=== PATIENT | female | born 1935 | race Caucasian/White ===

== ENCOUNTER 2017-03-31 06:55 | Inpatient (IN) | payer MEDICARE, BC ==
[2017-03-20 12:59] LABS: BASOPHILS 1.1 %; BASOPHILS ABSOLUTE 0.08 10/3/uL (0.0-0.16); EOSINOPHILS 1.9 %; EOSINOPHILS ABSOLUTE 0.14 10/3/uL (0.0-0.53); HEMATOCRIT 38.9 % (36.0-48.0); HEMOGLOBIN 12.9 g/dL (12.0-16.0); IMMATURE GRANULOCYTES 0.3 %; IMMATURE GRANULOCYTES ABSOLUTE 0.02 10/3/uL (0.0-0.11); LYMPHOCYTES 19.6 %; LYMPHOCYTES ABSOLUTE 1.45 10/3/uL (0.67-4.30); MEAN CORPUS HGB CONC 33.2 g/dL (32.0-36.0); MEAN CORPUSCULAR HEMOGLOB 31.9 pg (26.0-34.0); MEAN PLATELET VOLUME 9.9 fL (9.2-13.0); MONOCYTES 12.6 %; MONOCYTES ABSOLUTE 0.93 10/3/uL (0.21-1.20); NEUTROPHILS 64.5 %; NEUTROPHILS ABSOLUTE 4.79 10/3/uL (2.02-8.40); PLATELET COUNT 367 10/3/uL (150-400); RBC DISTRIBUTION WIDTH 14.7 % (12.0-16.0); RED CELL COUNT 4.04 10/6/uL (4.0-5.6); WHITE BLOOD CELLS 7.4 10/3/uL (4.5-10.5)
[2017-03-20 13:01] LABS: MANUAL DIFF NO %; MEAN CORPUSCULAR VOLUME 96.3 fL (80-100)
[2017-03-20 13:05] LABS: INTERNATIONAL NORMAL RATI 2.3 UNITS (-); PROTIME (NOT ORD) 25.3 SEC (12.0-14.5)
[2017-03-20 13:15] LABS: ALKALINE PHOSPHATASE 88 U/L (45-117); BUN (BLOOD UREA NITROGEN) 21 MG/DL (6-23); CALCIUM, SERUM 10.3 MG/DL (8.5-10.4); CHLORIDE, SERUM 101 MMOL/L (96-112); CO2 (CARBON DIOXIDE) 29 MMOL/L (24-34); CREATININE 0.76 MG/DL (0.55-1.02); GFR AFRICAN AMERICAN 85 ML/MIN (>=60); GFR NON AFRICAN AMERICAN 74 ML/MIN (>=60); GLOBULIN 4.1 G/DL (2.5-4.1); GLUCOSE, SERUM 97 MG/DL (60-99); POTASSIUM, SERUM 4.2 MMOL/L (3.5-5.3); SGOT(AST) 19 U/L (5-40); SGPT(ALT) 16 U/L (5-65); SODIUM, SERUM 138 MMOL/L (135-148); TOTAL BILIRUBIN 0.5 MG/DL (0-1.2); TOTAL PROTEIN 8.1 G/DL (6.0-8.5)
[2017-03-20 13:16] LABS: B NATRIURETIC PEPTIDE (BNP) 347.5 PG/ML (< 100.0)
[2017-03-20 13:20] LABS: ASCORBIC ACID (UR NOT ORDER) NEG (NEG); BILIRUBIN, URINE NEGATIVE (NEG); KETONE, URINE NEGATIVE (NEG); LEUKOCYTE ESTERASE(NOT OR NEG (NEG); WBC (NOT ORDERED) (RFLEX) < 1 (0-5)
[2017-03-20 22:04] LABS: GLYCOHEMOGLOBIN (HbA1c) 6.2 % (4.7-6.1)
--- NOTE | ~2017-03-31 | OP ---
Record Of Operation [facility] [address] [place]. [address] NAME: SHAMIKA GARCIA : 35 STATUS : DIS IN PAT#: [id number] AGE: 81 ADM/REG DATE : 03/31/17 MR#: [id number] REPORT SERV DATE: 04/03/17 DICTATED BY: BRAYDEN INFANTE DATE: 04/02/17 REPORT STATUS : Draft TRANSCRIBED BY: MODL DATE: 04/02/17 DATE OF PROCEDURE: 03/31/2017 PREOPERATIVE DIAGNOSIS: Critical aortic stenosis. POSTOPERATIVE DIAGNOSIS: Critical aortic stenosis. PROCEDURE: Transcatheter aortic valve implantation with a #26 Bucky 3 pericardial tissue valve by Rich. SURGEON: Brayden Infante M.D. ASSISTING SURGEON: Sixto Neely M.D. CARDIOLOGISTS: Kevan Palomino M.D. and Nav Badillo M.D. COMPLICATIONS: None. ANESTHESIA: Monitored anesthetic care. CONDITION: Stable to ICU. PROCEDURE IN DETAIL: After informed consent was obtained from the patient and after she had been fully reviewed in the TAVR clinic and deemed an intermediate candidate by two surgeons, she was brought to the operating room and monitored anesthetic care was instituted. She was prepped and draped in normal fashion. Using the Seldinger technique, right femoral artery access was obtained, left femoral artery access was obtained, and left femoral vein access was obtained. A femoral pacing wire was placed up the left femoral vein into the right ventricle and good threshold numbers were obtained for pacing. A flush catheter was brought over a wire up into the ascending aorta by the left femoral artery. Multiple projections were performed to find the correct angle of deployment. Dr. Bear performed transthoracic echocardiogram. The right femoral artery access then had two Perclose devices placed and the Rich sheath placed without difficulty. [employer]' hardware supplies sales representative readied the valve on the back table. This was brought to the operative stage. Straight wire access was then performed across the stenotic valve and exchanged out for a flush catheter. Gradients were obtained across the valve. The catheter was then exchanged for an Amplatzer extra-stiff wire that had been preshaped. The Rich S3 26 mm valve was then positioned into the descending aorta using the Commander sheath and the balloon engaged. The device was then threaded across the aortic arch and into the ascending aorta and across the valve. After a good coaxial placement was found, rapid pacing was performed and the valve deployed without difficulty. The sheath device was then pulled down into the descending aorta. Transthoracic echo was performed, which showed no perivalvular leaks. I failed to mention earlier that the patient was systemically heparinized before the Rich sheath was placed. Monitoring catheter was then placed back across the valve and the wire removed. Completion gradients were obtained. All wires and catheters were then removed. The Rich sheath was removed, and femoral arteriography performed after tie-down of the Perclose device which Record Of [facility] [address] [facility] [place]. [address] NAME: SHAMIKA GARCIA : 35 STATUS : DIS IN PAT#: [id number] AGE: 81 ADM/REG DATE : 03/31/17 MR#: [id number] REPORT SERV DATE: 04/03/17 DICTATED BY: BRAYDEN INFANTE DATE: 04/02/17 REPORT STATUS : Draft TRANSCRIBED BY: NYDIA DATE: 04/02/17 showed good flow to the right femoral artery and distally. All sheaths and catheters were then removed under pressure. Overall the patient tolerated the procedure well and was transported to the ICU in stable condition. REGISTRY NUMBERS: Total time of rapid pacing, 23 seconds. Actual time of TAVR deployment, 11:44 a.m. Cardiac output post deployment, 5.0; pre deployment, 3.2. Valve area post deployment was 2.57 cm2. Valve area pre deployment was 0.47 cm2. PREPROCEDURE HEMODYNAMICS: Blood pressure 115/51 with a mean of 74 and heart rate of 90, post deployment 122/48. Blood pressure with a mean of 71 and heart rate of 60. Post implant AV gradient was a mean of 5 and a peak of 6. Pre implant aortic valve gradient with a mean of 46 and a peak of 47. Contrast volume used was 145 mL. Fluoro time 16.9 minutes. ESTIMATED BLOOD LOSS: Less than 50 mL. TOTAL MILLIGRAY: Used was 687. AI INDEX: Equals 26. DEDRICK/MODL Brayden Infante M.D. / [id number] CC: Eugenie Owens M.D. [facility]
--- NOTE | ~2017-03-31 | OP ---
Record Of Operation [facility] [address] [place]. [address] NAME: SHAMIKA GARCIA : 35 STATUS : ADM IN PAT#: [id number] AGE: 81 ADM/REG DATE : 03/31/17 MR#: [id number] REPORT SERV DATE: 04/01/17 DICTATED BY: NAV PRINCE DATE: 03/31/17 REPORT STATUS : Draft TRANSCRIBED BY: MODL DATE: 03/31/17 DATE OF PROCEDURE: 03/31/2017 TRANSCATHETER AORTIC VALVE IMPLANTATION PROCEDURE NOTE REFERRING CARDIOLOGISTS: Dr. Tommy Liriano and Dr. Hernandez. PROCEDURE PERFORMED: 1. Transcatheter aortic valve implantation with a 26 mm Bucky S3 valve from a right transfemoral approach. 2. Temporary transvenous pacemaker placement, left femoral vein to right ventricle. 3. Ascending aortogram. 4. Iliac angiogram. 5. ProGlide closure x2, left femoral artery. 6. Angio-Seal closure, left femoral artery. 7. Transthoracic echocardiography. SURGEONS: 1. Nav Prince M.D. 2. Kevan Palomino M.D. 3. Deon Johnson M.D. 4. Florinda Traore BARBER APPRENTICE: Lanie. ECHOCARDIOGRAPHY: Deon Bear M.D., Ph.D, F.A.C.C.. SPECIMEN: Removed none. ANESTHESIA: MAC and local. ESTIMATED BLOOD LOSS: Less than 50 mL. FLUOROSCOPY TIME: 16.9 minutes, mGy 667. CONTRAST: 145 mL nonionic. COMPLICATIONS: None. PREOPERATIVE DIAGNOSES: 1. Severe aortic stenosis with aortic valve area of 0.7 square cm. 2. 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 3. Intermediate surgical risk with STS score of 4.7% mortality and 24.4% morbidity and mortality. 4. Coronary artery disease with 60% LAD stenosis. 5. Mildly depressed left ventricular systolic function with LVEF of 45%. Record Of Operation [facility] [address] [place]. [address] NAME: SHAMIKA GARCIA : 35 STATUS : ADM IN PAT#: [id number] AGE: 81 ADM/REG DATE : 03/31/17 MR#: [id number] REPORT SERV DATE: 04/01/17 DICTATED BY: NAV PRINCE DATE: 03/31/17 REPORT STATUS : Draft TRANSCRIBED BY: MODL DATE: 03/31/17 6. Mild pulmonary hypertension with PA pressure of 46/17 mmHg. 7. Atrial fibrillation. 8. Status post permanent pacemaker placement, [employer] device. 9. 2+ mitral regurgitation. 10.Diabetes mellitus. 11.Hypertension. 12.Hyperlipidemia. 13.History of liver injury due to cholesterol medications. POSTOPERATIVE DIAGNOSES: 1. Severe aortic stenosis with aortic valve area of 0.7 square cm. 2. 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 3. Intermediate surgical risk with STS score of 4.7% mortality and 24.4% morbidity and mortality. 4. Coronary artery disease with 60% LAD stenosis. 5. Mildly depressed left ventricular systolic function with LVEF of 45%. 6. Mild pulmonary hypertension with PA pressure of 46/17 mmHg. 7. Atrial fibrillation. 8. Status post permanent pacemaker placement, [employer] device. 9. 2+ mitral regurgitation. 10.Diabetes mellitus. 11.Hypertension. 12.Hyperlipidemia. 13.History of liver injury due to cholesterol medications. 14.Trace aortic insufficiency postoperatively. DATA FOR THE VALVE REGISTRY: Time of valve deployment 1144 hours. Rapid pacing time 23 seconds. AI index of 26, pre-procedure cardiac output 3.2 L/minute, aortic valve area of 0.5 square cm. Mean gradient of 46 and peak gradient of 47 mmHg. Postprocedure cardiac output 5.0 L/minute; aortic valve area of 2.6 square cm. Peak mean gradient of 3, peak gradient of 4 mmHg. BACKGROUND: Ms. Garcia is a very pleasant 81-year-old white woman with severe aortic stenosis by echocardiography and cardiac catheterization. She also has 60% LAD stenosis, LVEF of 45%. 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 She had intermediate surgical risk with STS score of 4.7% mortality and 24.4% morbidity and mortality. She was seen by two cardiac surgeons, Dr. Neely and Dr. Miramontes, who felt that she was at least intermediate surgical risk, she also had mild pulmonary hypertension with PA pressure of 46/17, and frailty with poor strength and was offered transcatheter valve implantation. The risks, benefits, and complications were discussed with the patient and her family. She understood them and those of her alternatives and wished to proceed. TECHNIQUE: After informed written consent was obtained from Ms. Garcia she was brought to the hybrid suite on the morning of 03/31/2017 in the fasting state. The time-out was performed and correct patient and operative plan were confirmed. MAC and local anesthesia was provided by the Anesthesia Service. Please see their notes for further details. Local Record Of Operation [facility] [address] [place]. [address] NAME: SHAMIKA GARCIA : 35 STATUS : ADM IN PAT#: [id number] AGE: 81 ADM/REG DATE : 03/31/17 MR#: [id number] REPORT SERV DATE: 04/01/17 DICTATED BY: NAV PRINCE DATE: 03/31/17 REPORT STATUS : Draft TRANSCRIBED BY: NYDIA DATE: 03/31/17 anesthesia was accomplished using 1% lidocaine. Using modified Seldinger technique and a micropuncture set, MicroSheaths were placed in both common femoral arteries. Femoral angiograms were obtained, which demonstrated good sticks in the common femoral arteries, thought suitable for closure, took two attempts on the right. 6-English sheaths were placed additionally in a similar fashion, a 6-English sheath was placed in the left femoral vein. The sheaths were double flushed and left in place. A 5-English balloon tipped pacing catheter was advanced from the LFV to the RV under fluoroscopic guidance. Threshold was checked, which was less than 0.6 milliamps, this was then set aside. Pigtail catheter was advanced over a flexible J-guidewire to the central aorta under fluoroscopic guidance. Guidewire was then withdrawn, catheter double flushed. Pressure recording was obtained. Angles were obtained using ascending aortography. Next, ProGlide closures were placed on the right at 10 o'clock and 2 o'clock positions in the usual fashion. The patient was heparinized to an ACT of greater than 250. The sheath was then exchanged for the Rich sheath, which was double flushed and left in place. Using an AL1 diagnostic catheter, the aortic valve was crossed and using the exchanged J guidewire, the catheter was exchanged for another pigtail catheter. Simultaneous LV and aortic pressures were then obtained. Cardiac output was performed. A pre-shaped Extra- Stiff wire was placed in the left ventricle. The catheter was withdrawn from the body. Next, a 26 mm Rich Bucky S3 valve was prepped and brought to the table, orientation was confirmed. The valve was then advanced over the wire to the descending aorta position. The balloon was brought back into the valve in the usual fashion. Next, the valve was brought around the aortic arch to the aortic valve position. The pusher was brought back. Fine adjustments were performed. When all was in readiness, the sequence was commenced. Respirations were held. Rapid pacing was performed. When the pressure fell, power injection was performed, and ascending aortography was performed. The valve was in good position, was inflated, and completely deployed. The balloon was deflated. Rapid pacing was ceased. Respirations were resumed. The balloon was then brought back around the aortic arch. Followup angiography revealed no significant aortic insufficiency. Echocardiography revealed only mild AI possibly due to the wire, position looked good under fluoroscopy and echocardiography. Next, the pigtail catheter was replaced and simultaneous LV and aortic pressures were then obtained. There was minimal gradient approximately 2-3 mmHg. AI index was 26, thought to be acceptable. Additional echocardiography was performed, which revealed only trace aortic insufficiency. Pullback recording of pressure was obtained, and the pressures matched. Next, the Rich sheath was removed. ProGlide closure was tied and there was good hemostasis. There were no bleeding and no hematoma. Followup angiography revealed widely patent iliac arteries. There was no evidence of dissection, distal embolization, and no evidence of stenosis or extravasation. Next, Angio-Seal closure was performed, left femoral artery with good hemostasis. There were no bleeding and no hematoma. The temporary transvenous pacemaker was removed. The patient tolerated the procedure well without apparent complication. She was then returned Record Of Operation [address] [place]. [address] NAME: SHAMIKA GARCIA : 35 STATUS : ADM IN PAT#: [id number] AGE: 81 ADM/REG DATE : 03/31/17 MR#: [id number] REPORT SERV DATE: 04/01/17 DICTATED BY: NAV PRINCE DATE: 03/31/17 REPORT STATUS : Draft TRANSCRIBED BY: NYDIA DATE: 03/31/17 to her room in good condition for access management. RECOMMENDATIONS: For aspirin and Plavix for one month, then Plavix for least six months and to resume her home [place] as well as echocardiographic followup. BN/NYDIA Nav Prince M.D. / [id number] CC: Eugenie Owens M.D. Vimal Ramjee, MD Gregory Keith Bruce, M.D.
[~2017-03-31 06:55] MED LIST: ACET500CAP PO; AMOXIL500 MG PO; AVAPRO300 MG PO; HYDROCHLOROT25 MG PO; JANTOVEN2.5 MG PO; JANTOVEN5 MG; KLOR-CON M1010 MEQ PO; PEP20 PO; TOPXL25 PO; TUMSROLL PO; TYLENOL PM PO; VITE PO
[2017-03-31 08:07] LABS: INTERNATIONAL NORMAL RATI 1.1 UNITS (-); PROTIME (NOT ORD) 14.3 SEC (12.0-14.5)
[2017-03-31 12:34] LABS: HEMOGLOBIN 10.5 g/dL (12.0-16.0)
[2017-03-31 12:35] LABS: HEMATOCRIT 30.9 % (36.0-48.0); PLATELET COUNT 246 10/3/uL (150-400)
[2017-03-31 12:42] LABS: INTERNATIONAL NORMAL RATI 1.4 UNITS (-)
[2017-03-31 12:48] LABS: BUN (BLOOD UREA NITROGEN) 17 MG/DL (6-23); CALCIUM, SERUM 8.7 MG/DL (8.5-10.4); CHLORIDE, SERUM 109 MMOL/L (96-112); CO2 (CARBON DIOXIDE) 27 MMOL/L (24-34); CREATININE 0.69 MG/DL (0.55-1.02); GFR AFRICAN AMERICAN 95 ML/MIN (>=60); GFR NON AFRICAN AMERICAN 82 ML/MIN (>=60); GLUCOSE, SERUM 107 MG/DL (60-99); POTASSIUM, SERUM 4.1 MMOL/L (3.5-5.3); SODIUM, SERUM 142 MMOL/L (135-148)
[2017-03-31 12:52] LABS: PROTIME (NOT ORD) 17.2 SEC (12.0-14.5)
[2017-03-31 12:53] LABS: PARTIAL THROMBO TIME > 150.0 SEC (22.5-37.2)
[2017-03-31 17:44] LABS: HEMATOCRIT 29.9 % (36.0-48.0); HEMOGLOBIN 10.1 g/dL (12.0-16.0)
[2017-03-31 17:59] LABS: BUN (BLOOD UREA NITROGEN) 15 MG/DL (6-23); CALCIUM, SERUM 8.3 MG/DL (8.5-10.4); CHLORIDE, SERUM 111 MMOL/L (96-112); CO2 (CARBON DIOXIDE) 25 MMOL/L (24-34); CREATININE 0.71 MG/DL (0.55-1.02); GFR AFRICAN AMERICAN 93 ML/MIN (>=60); GFR NON AFRICAN AMERICAN 80 ML/MIN (>=60); POTASSIUM, SERUM 3.7 MMOL/L (3.5-5.3); SODIUM, SERUM 139 MMOL/L (135-148)
[2017-03-31 18:01] LABS: GLUCOSE, SERUM 80 MG/DL (60-99)
[2017-04-01 03:52] LABS: BASOPHILS 0.5 %; BASOPHILS ABSOLUTE 0.05 10/3/uL (0.0-0.16); EOSINOPHILS 1.2 %; EOSINOPHILS ABSOLUTE 0.11 10/3/uL (0.0-0.53); HEMATOCRIT 30.6 % (36.0-48.0); HEMOGLOBIN 10.1 g/dL (12.0-16.0); IMMATURE GRANULOCYTES 0.1 %; IMMATURE GRANULOCYTES ABSOLUTE 0.01 10/3/uL (0.0-0.11); LYMPHOCYTES 7.2 %; LYMPHOCYTES ABSOLUTE 0.68 10/3/uL (0.67-4.30); MEAN CORPUSCULAR HEMOGLOB 32.2 pg (26.0-34.0); MEAN CORPUSCULAR VOLUME 97.5 fL (80-100); MEAN PLATELET VOLUME 9.8 fL (9.2-13.0); MONOCYTES 13.7 %; MONOCYTES ABSOLUTE 1.29 10/3/uL (0.21-1.20); NEUTROPHILS 77.3 %; NEUTROPHILS ABSOLUTE 7.26 10/3/uL (2.02-8.40); PLATELET COUNT 227 10/3/uL (150-400); RBC DISTRIBUTION WIDTH 14.3 % (12.0-16.0); WHITE BLOOD CELLS 9.4 10/3/uL (4.5-10.5)
[2017-04-01 03:59] LABS: INTERNATIONAL NORMAL RATI 1.2 UNITS (-)
[2017-04-01 04:03] LABS: BUN (BLOOD UREA NITROGEN) 14 MG/DL (6-23); CALCIUM, SERUM 8.3 MG/DL (8.5-10.4); CHLORIDE, SERUM 109 MMOL/L (96-112); CO2 (CARBON DIOXIDE) 25 MMOL/L (24-34); CREATININE 0.82 MG/DL (0.55-1.02); GFR AFRICAN AMERICAN 78 ML/MIN (>=60); GFR NON AFRICAN AMERICAN 67 ML/MIN (>=60); POTASSIUM, SERUM 3.7 MMOL/L (3.5-5.3); SODIUM, SERUM 144 MMOL/L (135-148)
[2017-04-01 04:04] LABS: GLUCOSE, SERUM 104 MG/DL (60-99)
[2017-04-01 04:09] LABS: MANUAL DIFF NO %; RED CELL COUNT 3.14 10/6/uL (4.0-5.6)
[2017-04-01] MEDS ORDERED: NORV5 PO (11:51)
[2017-04-01] MEDS ORDERED: HALF81 PO (11:52)
[2017-04-01] MEDS ORDERED: PLAVIX PO (11:52)
== END 2017-04-01 13:30 | disposition home or self-care (01) | DRG 266 ==
LOC: SDC/OF 06:55 → CVICU 11:48
PROVIDERS: Thoracic Surgery (Cardiothoracic Vascular Surgery)
PROC: B246YZZ Ultrasonography of Right and Left Heart using Other Contrast (ICD-10-PCS; 2017-03-31)
PROC: 02RF38Z Replacement of Aortic Valve with Zooplastic Tissue, Percutaneous Approach (ICD-10-PCS; principal; 2017-03-31 11:00)
DX: I35.0 Nonrheumatic aortic (valve) stenosis (principal); I50.43 Acute on chronic combined systolic (congestive) and diastolic (congestive) heart failure; I48.2 Chronic atrial fibrillation; I27.2 Other secondary pulmonary hypertension; I50.42 Chronic combined systolic (congestive) and diastolic (congestive) heart failure; Z00.6 Encounter for examination for normal comparison and control in clinical research program; K21.9 Gastro-esophageal reflux disease without esophagitis; D64.9 Anemia, unspecified; Z90.49 Acquired absence of other specified parts of digestive tract; Z98.890 Other specified postprocedural states; Z90.710 Acquired absence of both cervix and uterus; I25.10 Atherosclerotic heart disease of native coronary artery without angina pectoris; I11.0 Hypertensive heart disease with heart failure; E78.5 Hyperlipidemia, unspecified
CPT/HCPCS: 36415; 71010; 71020; 80048; 80053; 81001; 82330; 82803; 82947; 82962; 83036; 83735; 83880; 84132; 84295; 85014; 85018; 85025; 85049; 85347; 85610; 85730; 86850; 86900; 86901; 87641; 93005; A9270-GY; C1751; C1760; C1769; C1894; C8929; J0690; J2250; J2370; J3010; J3475; Q9957